=== PATIENT | female | born 2000 | race Hispanic/Latino ===

== ENCOUNTER 2022-09-13 22:47 | Emergency (ER) | payer SELFPAY ==
[2022-09-13 23:51] LABS: #Eosinphils 0.2 thou/uL (0.0-0.7); #Monocytes 0.6 thou/uL (0.11-0.59); #Neutrophils 4.7 thou/uL (1.40-6.50); %Basophils 0.4 % (0.0-1.0); %Eosinophils 2.7 % (0.0-10.0); %Monocytes 6.7 % (0.0-10.0); %Neutrophils 52.1 % (42.0-75.0); Hemoglobin 13.1 g/dL (12.0-16.0); Mean Corpuscular HGB CONC 34.8 g/dL (32.0-36.0); Mean Corpuscular Volume 91.9 fl (78.0-98.0); Mean Platelet Volume 10.4 fL (7.4-10.4); Platelet Count 295 10x3/uL (130-400); RBC Distribution Width 12.8 % (11.5-14.5); Red Blood Cell (RBC) Count 4.09 mill/uL (4.20-5.40); White Blood Cell (WBC) Count 8.9 10x3/uL (4.8-10.8)
[2022-09-14] MEDS ORDERED: Acetaminophen 500 MG TAB ONE (00:14)
[2022-09-14] MEDS ORDERED: Ondansetron PF 4 MG/2 ML Vial ONE (00:14)
[2022-09-14 00:15] LABS: BHCG - Serum Negative (NEGATIVE); Pregs Control Background? CLEAR/WHITE (CLR/WHITE); Pregs Control Bar Appear? YES (CONTROL BAR)
[2022-09-14 00:18] LABS: ALT (SGPT) 34 U/L (8-55); AST (SGOT) 28 U/L (5-34); Albumin 4.2 g/dL (3.5-5.0); Alkaline Phosphatase 70 U/L (40-110); Anion Gap 15 mmol/L (10-20); BUN (Urea Nitrogen) 11 mg/dL (7.0-18.7); Bilirubin, Total 0.2 mg/dL (0.2-1.2); CK (CPK) 120 U/L (29-168); Calc. Creatinine Clearance 0 mL/min (70-130); Carbon Dioxide 19 mmol/L (22-29); Chloride 108 mmol/L (98-107); Estimated GFR 114; Globulin 3.4 g/dL (2.4-3.5); Glucose 95 mg/dL (70-105); Lipase 30 U/L (8-78); Potassium 4.1 mmol/L (3.5-5.1); Protein, Total 7.6 g/dL (6.0-8.3); Sodium 138 mmol/L (136-145)
[2022-09-14 01:12] LABS: Bilirubin Negative (Negative); Blood, Urine 3+ (Negative); CAUTI Indications for Culture Pelvic or flank pain; Calcium Oxalate Crystals 4+ HPF (None Seen); Clarity Clear (Clear); Glucose, Urine (Dipstick) Normal (Negative); Ketone, Urine Negative (Negative); Leukocyte Negative Leu/uL (Negative); Nitrite Negative (Negative); Protein, Urine (Dipstick) 10 mg/dL (Neg-Trace); Urobilinogen Normal mg/dL (Less than 2); WBC/HPF 0-3 HPF (0-3); pH, Urine 5.5 (5.0-9.0)
[2022-09-14 01:13] LABS: Bacteria/HPF Rare-Few HPF (None Seen)
[2022-09-14 01:14] LABS: Urine Culture Reflex No No
== END 2022-09-14 02:01 | disposition home or self-care (01) ==
LOC: ERS 22:47
DX: R10.31 Right lower quadrant pain (principal)
CPT/HCPCS: 36415; 74176; 80053; 81001; 82550; 83690; 84703; 85025; 96361; 96374; J2405

== ENCOUNTER 2022-09-29 22:40 | Emergency (ER) | payer SELFPAY | END 2022-09-29 23:54 | disposition left against medical advice (07) | LOC: ERS 22:40 | DX: Z53.21 Procedure and treatment not carried out due to patient leaving prior to being seen by health care provider (principal) ==

== ENCOUNTER 2022-10-02 20:16 | Emergency (ER) | payer SELFPAY ==
[~2022-10-02 20:16] MED LIST: Iopamidol-370 76% 500 ML MDV (1 ML CHARGE) ONE
[2022-10-02] MEDS ORDERED: Morphine 4 MG/ML VIAL ONE (21:03)
[2022-10-02] MEDS ORDERED: Ondansetron PF 4 MG/2 ML Vial ONE (21:03)
[2022-10-02 21:09] LABS: #Eosinphils 0.2 thou/uL (0.0-0.7); #Monocytes 0.6 thou/uL (0.11-0.59); #Neutrophils 5.3 thou/uL (1.40-6.50); %Basophils 0.3 % (0.0-1.0); %Eosinophils 2.5 % (0.0-10.0); %Lymphocytes 30.4 % (21.0-51.0); %Monocytes 6.4 % (0.0-10.0); %Neutrophils 60.3 % (42.0-75.0); Hematocrit 37.3 % (36.0-47.0); Mean Corpuscular HGB CONC 34.9 g/dL (32.0-36.0); Mean Corpuscular Hemoglobin 31.7 pg (27.0-31.0); Mean Platelet Volume 10.9 fL (7.4-10.4); Platelet Count 258 10x3/uL (130-400); RBC Distribution Width 12.7 % (11.5-14.5); White Blood Cell (WBC) Count 8.7 10x3/uL (4.8-10.8)
[2022-10-02 21:19] LABS: Bacteria/HPF 2+ HPF (None Seen); Bilirubin Negative (Negative); Blood, Urine 3+ (Negative); CAUTI Indications for Culture Pelvic or flank pain; Clarity Clear (Clear); Glucose, Urine (Dipstick) Normal (Negative); Ketone, Urine Negative (Negative); Leukocyte Negative Leu/uL (Negative); Nitrite Negative (Negative); Protein, Urine (Dipstick) Negative (Neg-Trace); Specific Gravity, Urine 1.028 (1.002-1.036); Urobilinogen Normal mg/dL (Less than 2); WBC/HPF 0-3 HPF (0-3)
[2022-10-02 21:21] LABS: Urine Culture Reflex No No
[2022-10-02 21:23] LABS: BHCG - Serum Negative (NEGATIVE); Pregs Control Background? CLEAR/WHITE (CLR/WHITE); Pregs Control Bar Appear? YES (CONTROL BAR)
[2022-10-02 21:34] LABS: ALT (SGPT) 36 U/L (8-55); AST (SGOT) 25 U/L (5-34); Albumin 4.4 g/dL (3.5-5.0); Alkaline Phosphatase 79 U/L (40-110); Anion Gap 14 mmol/L (10-20); BUN (Urea Nitrogen) 10 mg/dL (7.0-18.7); Bilirubin, Total 0.2 mg/dL (0.2-1.2); Calc. Creatinine Clearance 0 mL/min (70-130); Calcium 9.4 mg/dL (7.8-10.44); Carbon Dioxide 22 mmol/L (22-29); Chloride 108 mmol/L (98-107); Estimated GFR 109; Globulin 3.2 g/dL (2.4-3.5); Glucose 104 mg/dL (70-105); Lipase 34 U/L (8-78); Potassium 4.3 mmol/L (3.5-5.1); Protein, Total 7.6 g/dL (6.0-8.3); Sodium 140 mmol/L (136-145)
== END 2022-10-02 22:12 | disposition home or self-care (01) ==
LOC: ERS 20:16
DX: R10.31 Right lower quadrant pain (principal); R11.2 Nausea with vomiting, unspecified
CPT/HCPCS: 36415; 74177; 80053; 81001; 83690; 84703; 85025; 96374; 96375; J2270; J2405; Q9967

== ENCOUNTER 2023-02-19 01:24 | Emergency (ER) | payer SELFPAY ==
[2023-02-19] MEDS ORDERED: diphenhydrAMINE 50 MG CAP ONE (02:10)
[2023-02-19] MEDS ORDERED: Dexamethasone 10 MG/ML VIAL ONE (02:10)
== END 2023-02-19 02:38 | disposition home or self-care (01) ==
LOC: ERS 01:24
DX: L29.9 Pruritus, unspecified (principal)
CPT/HCPCS: 99282; J1100